=== PATIENT | male | born 1945 | race Hispanic/Latino ===

== ENCOUNTER 2018-03-13 22:40 | Emergency (ER) | payer MEDICARE, OTHER ==
[2018-03-13 22:45] VITALS: BMI 27.1
[2018-03-13] MEDS ORDERED: Sodium Chloride 0.9% 50 ML IV ONE (22:57)
[2018-03-13] MEDS ORDERED: Iodixanol 320 MG/ML 100 ML BOTTLE IV ONE (22:57)
[2018-03-13] MEDS ORDERED: Sodium Chloride 0.9% 1,000 ML IV SCH (23:00)
--- NOTE | 2018-03-13 23:08 | ED PDOC ---
HPI:STROKE - Time Time: 22:50 - Historian Historian: Patient, Family - Chief Complaint Chief Complaint: Slurred speech, Mental status change - Onset Date: 03/14/18 Time: 20:30 Onset: Hours (2) - Timing Timing: Improved - Location Location: Difficult to localize - Severity of pain Maximum severity:: Mild Pain Scale:: 0 Severity Current: Mild Pain Scale:: 0 - Exacerbated by Exacerbated by:: Nothing - Relieved by Relieved by:: Nothing - TPA Positive for Contraindication: Yes Reason tPA is not being Administered: no CVA NIHSS Stroke Scale - Date/Time Evaluation Performed Date Performed: 03/13/18 Time Performed: 22:50 When Was NIHSS Performed: Code Stroke - How Severe is the Stroke Level of Consciousness: 0=Alert LOC to Questions: 1=One correct LOC to commands: 0=Obeys both correctly Best Gaze: 0=Normal Visual: 0=No visual loss Facial: 0=Normal Motor Arm - Left: 0=No drift Motor Arm - Right: 0=No drift Motor Leg - Left: 1=Drift before 5 sec Motor Leg - Right: 1=Drift before 5 sec Limb Ataxia: 0=Absent Sensory: 0=Normal Best Language: 0=No aphasia Dysarthia: 1=Mild to moderate slurring Extinction & Inattention (Neglect): 0=Normal, no object Score: 4 rTPA Inclusion/Exclusion - Refusal of Treatment Patient Refused Treatment: Yes - Inclusion Criteria for Altepase Patient is 18 years or Older: No The Clinical Diagnosis of Ischemic Stroke That is Causing a Potentially Disabling Neurological Deficit: No Time of Onset is Well Established to be Less Than 270 Minute Before Treatment Would Begin: Yes Risk/Benefit Discussed With Patient/Family Member Present: Yes Past Medical History Reviewed: Historical Data, Nursing Documentation, Vital Signs Vital Signs: Last Vital Signs Temp 97.9 F 03/13/18 22:46 Pulse 102 H 03/13/18 22:46 Resp 20 03/13/18 22:46 BP 132/91 H 03/13/18 22:46 Pulse Ox 99 03/13/18 22:46 - Medical History PMH: Seizures - Surgical History Surgical History: Hernia Repair - Family History Family History: States: No Known Family Hx - Allergies Allergies/Adverse Reactions: Allergies Allergy/AdvReac Type Severity Reaction Status Date / Time No Known Allergies Allergy Verified 03/13/18 22:45 Review of Systems ROS Statement: Except As Marked, All Systems Reviewed And Found Negative Physical Exam - Reviewed Nursing Documentation Reviewed: Yes Vital Signs Reviewed: Yes - Physical Exam Appears: Positive for: Non-toxic, No Acute Distress Head Exam: Positive for: ATRAUMATIC, NORMAL INSPECTION Skin: Positive for: Warm, Dry Eye Exam: Positive for: EOMI, PERRL ENT: Positive for: Normal ENT Inspection Neck: Positive for: Painless ROM, Supple Cardiovascular/Chest: Positive for: Regular Rate, Rhythm Respiratory: Positive for: Normal Breath Sounds. Negative for: Respiratory Distress Gastrointestinal/Abdominal: Positive for: Soft. Negative for: Tenderness Extremity: Positive for: Normal ROM Neurologic/Psych: Positive for: Alert, Oriented - Laboratory Results Result Diagrams: 03/13/18 23:20 03/13/18 23:20 - ECG O2 Sat by Pulse Oximetry: 99 - Progress Re-evaluation Time: 23:00 Condition: Re-examined, Improved - Critical Care Total Time (In Min): 60 Documented Critical Care: Time excludes all time spent performint seperately billable procedures Medical Decision Making Medical Decision Makin Impression AMS, slurred speech Diff include CVA, ICH, alcohol intoxication Plan Code Stroke CT head CTA head and neck Labs reassess Stroke consult Time: 2305 --CT head FINDINGS: BRAIN Chronic periventricular and subcortical microvascular disease is seen. VENTRICLES: There is generalized parenchymal atrophy noted as demonstrated by symmetrical dilatation of ventricles and sulci. ORBITS: The orbits are unremarkable. SINUSES AND MASTOIDS: The paranasal sinuses and mastoid air cells are clear. BONES: No fracture. SOFT TISSUES: Unremarkable. MISCELLANEOUS: No acute intracranial pathology. IMPRESSION: 1. There is generalized parenchymal atrophy noted as demonstrated by symmetrical dilatation of ventricles and sulci. 2. Chronic periventricular and subcortical microvascular disease is seen. 3. No acute intracranial pathology. 23:15 --Spoke with Dr. Flower; does not recommend tPA. Will give aspirin instead. 2330 Alcohol is 297. Impression Alcohol intoxication. [address] Flower who recommends cancelling code stroke, no further neurological work up or treatment in ED. Patient stable for discharge from neurological point as per Dr Flower. 23:28 CTA Head and Neck FINDINGS: VASCULATURE: NECK: COMMON CAROTID ARTERIES Mild atherosclerotic changes at the left bifurcation. No significant canal stenosis. No dissection or occlusion. EXTERNAL CAROTID ARTERIES Patent. NECK: INTERNAL CAROTID ARTERIES No stenosis by NASCET criteria. No dissection or occlusion. VERTEBRAL ARTERIES No significant canal stenosis. No dissection or occlusion. HEAD: ANTERIOR CEREBRAL ARTERIES No significant stenosis. No occlusion. No aneurysm. MIDDLE CEREBRAL ARTERIES No significant stenosis. No occlusion. No aneurysm. POSTERIOR CEREBRAL ARTERIES No significant stenosis. No occlusion. No aneurysm. BASILAR ARTERY No significant stenosis. No occlusion. No aneurysm. OTHER: SOFT TISSUES No acute finding. BONES No acute osseous abnormality. IMPRESSION: Mild atherosclerotic changes at the left bifurcation. Unremarkable CTA of the head and neck otherwise 0530 Patient is alert and awake. Ambulatory with steady gait. Disposition - Clinical Impression Clinical Impression: Alcohol intoxication - Patient ED Disposition Is Patient to be Admitted: No Doctor Will See Patient In The: Office Counseled Patient/Family Regarding: Studies Performed, Diagnosis, Need For Followup - Disposition Referrals: [facility] [Outside] Disposition: Routine/Home Disposition Time: 05:44 Condition: GOOD Additional Instructions: TAMMI MACDONALD, thank you for letting us take care of you today. Your provider was Octavio Burton MD and you were treated for POSS STROKE. The emergency medical care you received today was directed at your acute symptoms. If you were prescribed any medication, please fill it and take as directed. It may take several days for your symptoms to resolve. Return to the Emergency Department if your symptoms worsen, do not improve, or if you have any other problems. Please contact your doctor or call one of the physicians/clinics you have been referred to that are listed on the Patient Visit Information form that is included in your discharge packet. Bring any paperwork you were given at discharge with you along with any medications you are taking to your follow up visit. Our treatment cannot replace ongoing medical care by a primary care provider outside of the emergency department. [facility]. If you had an X-Ray or CT scan: A Radiologist will review the ED reading if any change in treatment is needed we will contact you. If you had a blood, urine, or wound culture: It will take several days for the results, if any change in treatment is needed we will contact you. If you had an STI test: It will take 48 hours for the results. Please call after 1 week if you have not heard back. Instructions: Alcohol Abuse and Alcoholism (DC)
[2018-03-13 23:21] VITALS: RESP 18
[2018-03-13 23:28] LABS: BASO # 0.1 K/uL (0.0-0.2); BASO % 0.9 % (0.0-2.0); EOS # 0.4 K/uL (0.0-0.7); EOS % 6.4 % (0.0-4.0); HEMOGLOBIN 14.2 g/dL (12.0-18.0); LYMPH # 2.1 K/uL (1.0-4.3); MEAN CELL VOLUME 94.7 fl (80.0-94.0); MEAN CORPUSCULAR HEMOGLOBIN 32.7 pg (27.0-31.0); MEAN CORPUSCULAR HGB CONC 34.5 g/dL (33.0-37.0); MEAN PLATELET VOLUME 6.5 fl (7.2-11.7); MONO # 0.7 K/uL (0.0-0.8); MONO % 11.6 % (0.0-10.0); NEUT % 47.1 % (50.0-75.0); NRBC % 0.1 % (0.0-0.0); RBC 4.34 Mil/uL (4.40-5.90); RED CELL DISTRIBUTION WIDTH 13.1 % (11.5-14.5); WHITE BLOOD COUNT 6.3 K/uL (4.8-10.8)
[2018-03-13 23:37] LABS: PROTHROMBIN TIME 10.9 Seconds (9.8-13.1)
[2018-03-13 23:39] LABS: ALB/GLOB RATIO 1.3 (1.0-2.1); ALBUMIN 3.9 g/dL (3.5-5.0); ALT/SGPT 44 U/L (21-72); AST/SGOT 41 U/L (17-59); BLOOD UREA NITROGEN 25 mg/dl (9-20); GFR NON-AFRICAN AMERICAN > 60; HDL CHOLESTEROL 42 MG/DL (30-70)
[2018-03-13 23:40] LABS: PARTIAL THROMBOPLASTIN TIME 29.3 Seconds (25.6-37.1)
[2018-03-13 23:49] LABS: LDL CHOLESTEROL 188 mg/dL (0-129)
[2018-03-14 04:07] LABS: BARBITURATES, UR NEGATIVE (NEGATIVE); BENZODIAZEPINES, UR NEGATIVE (NEGATIVE); OPIATES, UR NEGATIVE (NEGATIVE); PHENCYCLIDINE, UR NEGATIVE (NEGATIVE)
[2018-03-14 06:03] VITALS: BP 135/90; PULSE 96; TEMP 97.5; O2SAT 100
--- NOTE | 2018-03-14 06:45 | CARD ---
APPROVED REPORT Date of service: 03/13/2018 EKG Measurement Heart [id number] <Conclusion> Normal sinus rhythm Low voltage QRS Borderline ECG
--- NOTE | 2018-03-14 08:27 | CT ---
Date of service: 03/13/2018 PROCEDURE: CT HEAD WITHOUT CONTRAST. HISTORY: stroke COMPARISON: None available. TECHNIQUE: Axial computed tomography images were obtained through the head/brain without intravenous contrast. Radiation dose: Total exam DLP = 825.24 mGy-cm. This CT exam was performed using one or more of the following dose reduction techniques: Automated exposure control, adjustment of the mA and/or kV according to patient size, and/or use of iterative reconstruction technique. FINDINGS: HEMORRHAGE: No intracranial hemorrhage. BRAIN: No mass effect or edema. There is perceived asymmetrical hypodensity in the left posterior frontal to parietal subcortical/subcortical white matter junction (sagittal series 602 image 59 and coronal series 601, image 50) no gross mass effect here seen. The left frontal horn is asymmetrically larger. The chronicity of this appearance is unknown. VENTRICLES: Unremarkable. No hydrocephalus. CALVARIUM: Unremarkable. PARANASAL SINUSES: Right maxillary sinus mucosal thickening. MASTOID AIR CELLS: Unremarkable as visualized. No inflammatory changes. OTHER FINDINGS: None. IMPRESSION: No intracranial hemorrhage or mass effect. Left posterior frontal-to parietal cortical/subcortical hypodensity of unknown chronicity. -microvascular infarct changes are bleed most consistent with this. If further evaluation is needed consider MRI of the brain. Preliminary report by a [place] rad mentions chronic periventricular and subcortical microvascular disease no specific mention of this focality in the left cerebral hemisphere is noted on that exam. Correlation with clinical exam is recommended correlation with past medical history is advised. Comments: Study marked for PA review .
--- NOTE | 2018-03-14 09:21 | RAD ---
Date of service: 03/13/2018 HISTORY: Code Stroke COMPARISON: No prior. FINDINGS: LUNGS: No consolidation seen. Limited exam per apical lordotic projection. And inferred shallow lung inspiration. Shallow lung volumes. PLEURA: No significant pleural effusion identified, no pneumothorax apparent. CARDIOVASCULAR: No aortic atherosclerotic calcification present. Limited exam regarding heart size assessment. Probable mild pulmonary venous congestion given the limited projection shallow lung volumes. OSSEOUS STRUCTURES: No significant abnormalities. VISUALIZED UPPER ABDOMEN: Normal. OTHER FINDINGS: None. IMPRESSION: Probable mild pulmonary venous congestion
--- NOTE | 2018-03-14 11:14 | CT ---
Date of service: 03/13/2018 PROCEDURE: CTA HEAD AND NECK WITH CONTRAST HISTORY: stroke COMPARISON: None available. TECHNIQUE: Initial noncontrast head CT was performed. Subsequently, CT angiogram of the head and neck were performed after the intravenous administration of 80 mL of Omnipaque 350. Contiguous 1.5mm thick images were obtained in the axial plane of the neck. 2-D coronal and sagittal MPR images were obtained. Imaging postprocessing was performed with 3-D images also obtained. A delayed contrast head CT was also obtained. This CT exam was performed using one or more of the following dose reduction techniques: Automated exposure control, adjustment of the mA and/or kV according to patient size, and/or use of iterative reconstruction technique. Contrast dose: 95 mL Visipaque 320 Radiation dose: Total exam DLP = 529.43 mGy-cm. FINDINGS: HEAD: Right: The intracranial internal carotid artery, and anterior and middle cerebral arteries are widely patent. Left: The intracranial internal carotid artery, and anterior and middle cerebral arteries are widely patent. Posterior circulation: The visualized intracranial vertebral arteries, basilar artery and posterior cerebral arteries are widely patent. There is origin of bilateral posterior cerebral arteries and hypoplastic vertebrobasilar system, an anatomic variant. There is no endoluminal filling defect to suggest thrombus. There is no intracranial saccular aneurysm. NECK: There is a three vessel aortic arch. There is no stenosis at the origins of the great vessels at the level of the aortic arch. No atherosclerotic calcification or mural plaque present. Right Carotid: On the right, the common carotid, internal carotid and external carotid arteries are widely patent. There is no hemodynamically significant stenosis in the internal carotid artery by NASCET criteria. Left Carotid: On the left, the common carotid, internal carotid and external carotid arteries are widely patent. There are mild atherosclerotic calcifications in the carotid bulb and proximal internal carotid artery There is no hemodynamically significant stenosis in the internal carotid artery by NASCET criteria. The vertebral arteries are widely patent. The right vertebral artery is hypoplastic, an anatomic variant. The visualized soft tissues of the neck are normal. The visualized brain and cervical spine are within normal limits. The lung apices are clear. There is mucosal thickening in the ethmoid air cells and maxillary sinuses and a large retention cyst/polyp in the right maxillary sinus. IMPRESSION: 1. No evidence of endoluminal thrombus,occlusion or definite significant stenosis in the intracranial arteries. 2. No evidence of hemodynamically significant stenosis in the internal carotid arteries. 3. Patent bilateral vertebral arteries. A preliminary report was provided by [employer].
[2018-03-14 12:27] LABS: PROLACTIN 20.5 ng/mL (3.7-17.9)
== END 2018-03-14 06:02 | disposition home or self-care (01) ==
LOC: H.ER 22:40
DX: F10.129 Alcohol abuse with intoxication, unspecified (principal); Y90.8 Blood alcohol level of 240 mg/100 ml or more
CPT/HCPCS: 70450; 70496; 70498; 71045; 80053; 80061; 82948; 83036; 84146; 84484; 85025; 85610; 85730; 86850; 86900; 93005; 99285; G0480; J7030; Q9967